=== PATIENT | female | born 1985 ===

== ENCOUNTER 2018-10-22 17:50 | Inpatient (IN) ==
[2018-10-22] MEDS ORDERED: SODIUM CHLORIDE 0.9% 1,000 ML IV STA (18:06)
[2018-10-22] MEDS ORDERED: ONDANSETRON 4 MG/2 ML VIAL IV STA (18:06)
[2018-10-22 19:14] LABS: Apearance,Urine CLEAR (Clear); Bilirubin,Urine Negative (Negative); Blood, Urine Negative (Negative); Glucose,Urine (UA) Negative (Negative); Hyaline Casts,Urine 1 /LPF (0-3); Ketones,Urine 5 mg/dL (Negative); Mucus,Urine Moderate /LPF (Occasional); Nitrite,Urine Negative (Negative); Protein,Urine Negative; RBC,Urine 8 /HPF (0-4); Squamous Epithelial Cell,Urine Occasional /HPF (0-10); Urine Color Yellow (Yellow); Urine Specific Gravity 1.023 (1.001-1.035); Urine Urobilinogen < 2.0 EU/DL (0.2-1.0); WBC,Urine 1 /HPF (0-6)
[2018-10-22 19:20] LABS: Basophils # 0.1 10*3/uL (0.0-0.2); Basophils % 0.6 % (0.0-0.8); Eosinophils # 0.1 10*3/uL (0.0-0.87); Eosinophils % 0.5 % (0.00-10.9); Hematocrit 34.5 VOL% (35.7-47.0); Immature Granulocytes % 0.4 %; Immature Granulocytes Absolute 0.04 #; Lymphocytes # 1.4 10*3/uL (1.4-4.0); Mean Corpuscular HGB Conc 29.3 GM/DL (32-36); Mean Platelet Volume 12.3 FL (9.6-12.0); Monocytes % 5.6 % (1.7-12.7); Neutrophils % 79.9 % (38.7-73.9); Platelet Count 255 T/CUMM (130-400); Red Blood Count 4.54 MC/CUMM (3.8-5.5); Red Cell Distribution Width 17.6 % (9.3-17.3); White Blood Count 10.8 T/CUMM (4-12)
[2018-10-22 19:22] LABS: Hemoglobin 10.1 GM/DL (12.0-16.0)
[2018-10-22 19:27] LABS: Albumin 3.3 G/DL (3.4-5.0); Bilirubin,Total 1.2 MG/DL (0.2-1.0); Calcium 8.6 MG/DL (8.5-10.1); Osmolality,Calculated 277.4 MOS/KG (273-304); Total Protein 7.9 G/DL (6.4-8.3)
[2018-10-22] MEDS ORDERED: LEVOFLOXACIN INJ 500 MG in PREMIX 1 EACH IV STA (21:12)
[2018-10-22] MEDS ORDERED: ONDANSETRON 4 MG/2 ML VIAL IV PRN (21:20)
[2018-10-22] MEDS ORDERED: ACETAMINOPHEN 325 MG TABLET PO PRN (21:20)
[2018-10-22] MEDS: MORPHINE 4 MG/1 ML VIAL IV PRN (22:54)
[2018-10-23] MEDS: DEXTROSE 5% NACL 0.45% 1,000 ML IV SCH ×3 (00:03→18:22)
[2018-10-23] MEDS: metroNIDAZOLE INJ 500 MG in PREMIX 1 EACH IV SCH ×3 (00:03→16:30)
[2018-10-23 04:39] LABS: Basophils # 0.1 10*3/uL (0.0-0.2); Basophils % 0.5 % (0.0-0.8); Eosinophils # 0.1 10*3/uL (0.0-0.87); Eosinophils % 0.6 % (0.00-10.9); Hemoglobin 9.1 GM/DL (12.0-16.0); Immature Granulocytes % 0.4 %; Immature Granulocytes Absolute 0.05 #; Lymphocytes # 1.5 10*3/uL (1.4-4.0); Lymphocytes % 11.6 % (21.3-54.2); Mean Corpuscular HGB Conc 29.4 GM/DL (32-36); Mean Corpuscular Volume 75.4 FL (87-102); Mean Platelet Volume 12.2 FL (9.6-12.0); Monocytes % 8.4 % (1.7-12.7); Neutrophils % 78.5 % (38.7-73.9); Platelet Count 193 T/CUMM (130-400); Red Blood Count 4.11 MC/CUMM (3.8-5.5); White Blood Count 13.1 T/CUMM (4-12)
[2018-10-23 05:13] LABS: Albumin 2.8 G/DL (3.4-5.0); Bilirubin,Total 1.2 MG/DL (0.2-1.0); Calcium 8.3 MG/DL (8.5-10.1); Osmolality,Calculated 279.3 MOS/KG (273-304); Total Protein 7.1 G/DL (6.4-8.3)
[2018-10-23] MEDS: PANTOPRAZOLE 40 MG TABLET PO SCH (08:19)
[2018-10-23] MEDS: MORPHINE 4 MG/1 ML VIAL IV PRN (08:23)
[2018-10-23] MEDS ORDERED: LIDOCAINE 1%/EPI INJ 20 ML VIAL ONE (10:22)
[2018-10-23] MEDS ORDERED: TISSUE ADHESIVE 1 EACH APPLICATOR TOP ONE (10:22)
[2018-10-23] MEDS ORDERED: BUPIVACAINE 0.25% /EPI 10 ML VIAL ONE (10:22)
[2018-10-23] MEDS ORDERED: PROPOFOL 200 MG/20 ML VIAL IV ONE (13:06)
[2018-10-23] MEDS ORDERED: DESFLURANE 1 UNIT/15 MINUTE INH ONE (13:07)
[2018-10-23] MEDS ORDERED: MIDAZOLAM 2 MG/2 ML VIAL ONE (13:07)
[2018-10-23] MEDS ORDERED: ONDANSETRON 4 MG/2 ML VIAL ONE (13:07)
[2018-10-23] MEDS ORDERED: DEXAMETHASONE 4 MG/1 ML VIAL ONE (13:07)
[2018-10-23] MEDS ORDERED: ACETAMINOPHEN 1,000 MG/100 ML VIAL IV ONE (13:07)
[2018-10-23] MEDS ORDERED: fentaNYL 100 MCG/2 ML VIAL ONE (13:07)
[2018-10-23] MEDS ORDERED: GLYCOPYRROLATE 0.4 MG/2 ML VIAL ONE (13:07)
[2018-10-23] MEDS ORDERED: NEOSTIGMINE 10 MG/10 ML VIAL ONE (13:08)
[2018-10-23] MEDS ORDERED: SUCCINYLCHOLINE 200 MG/10 ML VIAL ONE (13:08)
[2018-10-23] MEDS ORDERED: ROCURONIUM 100 MG/10 ML VIAL IV ONE (13:08)
[2018-10-23] MEDS ORDERED: PHENYLEPHRINE 1 MG/10 ML SYRINGE IV ONE (13:08)
[2018-10-23] MEDS ORDERED: LORATADINE 10 MG TABLET PO ONE (19:30)
[2018-10-23] MEDS: LEVOFLOXACIN INJ 750 MG in PREMIX 1 EACH IV SCH (21:51)
[2018-10-24] MEDS: metroNIDAZOLE INJ 500 MG in PREMIX 1 EACH IV SCH ×3 (00:44→15:09)
[2018-10-24] MEDS: MORPHINE 4 MG/1 ML VIAL IV PRN (02:26)
[2018-10-24] MEDS: DEXTROSE 5% NACL 0.45% 1,000 ML IV SCH ×3 (05:32→15:05)
[2018-10-24] MEDS: PANTOPRAZOLE 40 MG TABLET PO SCH (08:57)
[2018-10-24 10:13] LABS: Basophils % 0.3 % (0.0-0.8); Eosinophils # 0.1 10*3/uL (0.0-0.87); Eosinophils % 0.6 % (0.00-10.9); Hematocrit 27.6 VOL% (35.7-47.0); Immature Granulocytes % 0.7 %; Immature Granulocytes Absolute 0.08 #; Lymphocytes # 1.3 10*3/uL (1.4-4.0); Lymphocytes % 10.3 % (21.3-54.2); Mean Corpuscular Volume 76.7 FL (87-102); Mean Platelet Volume 11.7 FL (9.6-12.0); Monocytes % 8.1 % (1.7-12.7); Platelet Count 176 T/CUMM (130-400); Red Cell Distribution Width 17.7 % (9.3-17.3); White Blood Count 12.2 T/CUMM (4-12)
[2018-10-24 10:33] LABS: Hypochromasia 1+; Platelet Estimate Adequate
[2018-10-24 10:42] LABS: Calcium 7.7 MG/DL (8.5-10.1); Osmolality,Calculated 275.5 MOS/KG (273-304)
[2018-10-24] MEDS: LEVOFLOXACIN INJ 750 MG in PREMIX 1 EACH IV SCH (21:02)
[2018-10-25] MEDS: metroNIDAZOLE INJ 500 MG in PREMIX 1 EACH IV SCH ×3 (00:20→15:39)
[2018-10-25] MEDS: DEXTROSE 5% NACL 0.45% 1,000 ML IV SCH (00:24)
[2018-10-25] MEDS ORDERED: POTASSIUM CHLORIDE 20 MEQ TABLET PO PRN (09:33)
[2018-10-25] MEDS: PANTOPRAZOLE 40 MG TABLET PO SCH (09:44)
[2018-10-25] MEDS: POTASSIUM CHLORIDE 20 MEQ TABLET PO PRN ×2 (14:23→15:42)
[2018-10-25] MEDS: LEVOFLOXACIN INJ 750 MG in PREMIX 1 EACH IV SCH (21:08)
[2018-10-26] MEDS: metroNIDAZOLE INJ 500 MG in PREMIX 1 EACH IV SCH ×2 (00:15→08:23)
[2018-10-26 05:26] LABS: Basophils # 0.1 10*3/uL (0.0-0.2); Basophils % 0.6 % (0.0-0.8); Eosinophils # 0.3 10*3/uL (0.0-0.87); Eosinophils % 3.3 % (0.00-10.9); Hematocrit 27.1 VOL% (35.7-47.0); Hemoglobin 7.9 GM/DL (12.0-16.0); Immature Granulocytes % 1.1 %; Immature Granulocytes Absolute 0.09 #; Lymphocytes # 1.7 10*3/uL (1.4-4.0); Mean Corpuscular HGB Conc 29.2 GM/DL (32-36); Mean Corpuscular Volume 75.7 FL (87-102); Mean Platelet Volume 12.2 FL (9.6-12.0); Monocytes % 7.2 % (1.7-12.7); NRBC # 0.02 10*3/uL; Neutrophils % 67.8 % (38.7-73.9); Platelet Count 180 T/CUMM (130-400); Red Blood Count 3.58 MC/CUMM (3.8-5.5); Red Cell Distribution Width 18.1 % (9.3-17.3); White Blood Count 8.4 T/CUMM (4-12)
[2018-10-26 05:45] LABS: Calcium 8.1 MG/DL (8.5-10.1); Osmolality,Calculated 277.3 MOS/KG (273-304)
[2018-10-26] MEDS: POTASSIUM CHLORIDE 20 MEQ TABLET PO PRN (08:23)
[2018-10-26] MEDS: PANTOPRAZOLE 40 MG TABLET PO SCH (08:23)
[2018-10-26 12:19] VITALS: BP 108/74
[2018-10-26] MEDS: DEXTROSE 5% NACL 0.45% 1,000 ML IV SCH (12:44)
== END 2018-10-26 13:27 | disposition home or self-care (01) | DRG 418 ==
LOC: N.ED 17:50 → N.EDINP 21:20 → N.3E 22:22
PROVIDERS: ADMIT Surgery; ATTEND Surgery
PROC: LAPCHOL (2018-10-23 10:40)